=== PATIENT | female | born 1970 | race Caucasian/White ===

== ENCOUNTER 2018-07-09 08:00 | Inpatient (IN) | payer OTHER ==
[~2018-07-09] VITALS: Ht 175.3 cm; Wt 82.1 kg
[2018-07-09] MEDS ORDERED: ZANTAC150 MG PO (10:40)
[2018-07-09] MEDS ORDERED: BENT PO (10:41)
[2018-07-09] MEDS ORDERED: PRILOSEC PO (10:41)
[2018-07-19] MEDS ORDERED: OMEPRAZOLE20 MG PO (09:57)
[2018-07-19] MEDS ORDERED: INTESTINEX680 M1 PO (09:57)
[2018-07-19] MEDS ORDERED: ULTRACET PO (09:57)
== END 2018-07-19 13:58 | disposition home or self-care (01) | DRG 330 ==
LOC: ADM 08:00 → SURH 07-14 07:00 → O/R 07-14 07:10 → SURH 07-14 07:10 → CIR.AMB 07-14 08:00 → SURH 07-14 08:00 → EDSTATUS 07-14 08:00 → SURH 07-14 13:52
PROVIDERS: Surgery
PROC: 07TC4ZZ Resection of Pelvis Lymphatic, Percutaneous Endoscopic Approach (ICD-10-PCS; 2018-07-14)
PROC: 0DTF4ZZ Resection of Right Large Intestine, Percutaneous Endoscopic Approach (ICD-10-PCS; principal; 2018-07-14 07:00)
PROC: 30233N1 Transfusion of Nonautologous Red Blood Cells into Peripheral Vein, Percutaneous Approach (ICD-10-PCS; 2018-07-17)
DX: C18.5 Malignant neoplasm of splenic flexure (principal); C18.4 Malignant neoplasm of transverse colon; R59.0 Localized enlarged lymph nodes; D50.0 Iron deficiency anemia secondary to blood loss (chronic)

== ENCOUNTER 2018-07-13 07:41 | Day surgery (SDC) | payer OTHER ==
[~2018-07-13 07:41] MED LIST: BENT PO; PRILOSEC PO; ZANTAC150 MG PO
== END 2018-07-13 10:01 | disposition home or self-care (01) ==
LOC: AMB-ENDOS 07:41
DX: C18.5 Malignant neoplasm of splenic flexure (principal)

== ENCOUNTER 2018-09-11 05:22 | Day surgery (SDC) | payer OTHER ==
[~2018-09-11 05:22] MED LIST changes: +INTESTINEX680 M1 PO; +OMEPRAZOLE20 MG PO; +ULTRACET PO
[2018-09-11] MEDS ORDERED: PERCOCET 5-3251 EACH PO (07:57)
== END 2018-09-11 09:35 | disposition home or self-care (01) ==
LOC: CIR.AMB 05:22
DX: C18.5 Malignant neoplasm of splenic flexure (principal)
CPT/HCPCS: 36561; C1751

== ENCOUNTER 2019-09-27 06:49 | Day surgery (SDC) | payer OTHER ==
[~2019-09-27 06:49] MED LIST changes: +PERCOCET 5-3251 EACH PO
== END 2019-09-27 13:35 | disposition home or self-care (01) ==
LOC: AMB-ENDOS 06:49
DX: K62.89 Other specified diseases of anus and rectum (principal)

== ENCOUNTER 2021-03-09 08:55 | Day surgery (SDC) | payer OTHER ==
[~2021-03-09 08:55] MED LIST changes: +PEPCI PO; +XARELTO15 MG PO
[2021-03-09] MEDS ORDERED: PERCOCET 5-3251 EACH PO ×2 (16:00)
== END 2021-03-09 19:25 | disposition home or self-care (01) ==
LOC: CIR.AMB 08:55
PROVIDERS: ATTEND Surgery
DX: T82.514A Breakdown (mechanical) of infusion catheter, initial encounter (principal); Z20.822 Contact with and (suspected) exposure to COVID-19
CPT/HCPCS: 36561; 36590; C1751

== ENCOUNTER 2021-03-09 09:09 | Outpatient (CLI) | payer OTHER ==
[2021-03-09] MEDS ORDERED: PERCOCET 5-3251 EACH PO ×2 (16:00)
== END 2021-03-09 09:10 | disposition home or self-care (01) ==
LOC: LAB 09:09
PROVIDERS: ATTEND Surgery
DX: C18.5 Malignant neoplasm of splenic flexure (principal); R59.0 Localized enlarged lymph nodes; K92.1 Melena; D50.9 Iron deficiency anemia, unspecified; C78.7 Secondary malignant neoplasm of liver and intrahepatic bile duct